=== PATIENT | male | born 1990 | race Two or more races ===

== ENCOUNTER 2019-04-10 10:20 | Emergency (ER) | payer MEDICAID ==
[~2019-04-10] VITALS: Ht 188 cm; Wt 210.1 kg
[2019-04-10 10:35] VITALS: BP 131/79
[2019-04-10 11:19] LABS: Basophils # (auto) 0 uL; Basophils % (auto) 0.3 % (0.0-2.0); Eosinophils # (auto) 0.2 uL; Eosinophils % (auto) 2.3 % (0.0-7.0); Hematocrit 45.5 % (41.0-53.0); Hemoglobin 14.5 g/dL (13.5-17.5); Lymphocytes # (auto) 2.5 uL; Lymphocytes % (auto) 25.5 % (10.0-50.0); Mean Corpuscular Hemoglobin 25.5 pg (28.0-32.0); Mean Corpuscular Hgb Conc. 31.9 g/dL (32.0-36.0); Mean Corpuscular Volume 79.8 fL (80.0-100.0); Monocytes # (auto) 0.5 uL; Monocytes % (auto) 5.2 % (0.0-12.0); Neutrophils # (auto) 6.5 uL; Neutrophils % (auto) 66.7 % (37.0-80.0); Platelet Count (auto) 317 10^3/uL (140-450); Red Blood Cells 5.71 10^6/uL (4.5-5.90); Red Cell Distribution Width 15.1 % (11.8-14.3); White Blood Cell 9.7 10^3/uL (4.4-10.8)
[2019-04-10 11:59] LABS: Alkaline Phosphatase 71 U/L (45-117); Anion Gap 9 (5-15); Aspartate Aminotransferase 42 U/L (15-37); BUN/Creatinine Ratio 10.3; Blood Urea Nitrogen 9 mg/dL (7-18); Carbon Dioxide 24 mmol/L (21-32); Chloride 105 mmol/L (98-107); GFR African American 134 mL/min; GFR Non-African American 111 mL/min; Glucose 117 mg/dL (74-106); Potassium 3.9 mmol/L (3.5-5.1); Sodium 138 mmol/L (136-145)
[2019-04-10 12:00] LABS: Alanine Aminotransferase 61 U/L (16-61); Albumin 3.1 g/dL (3.4-5.0); Bilirubin, Total 0.5 mg/dL (0.2-1.0); Calcium 8.8 mg/dL (8.5-10.1); Total Protein 7.7 g/dL (6.4-8.2)
== END 2019-04-10 18:48 | disposition left against medical advice (07) ==
LOC: ER 10:20
DX: R42 Dizziness and giddiness (principal); R53.1 Weakness; Z53.21 Procedure and treatment not carried out due to patient leaving prior to being seen by health care provider
CPT/HCPCS: 36415; 80053; 82962; 84484; 85025; 93005

== ENCOUNTER 2020-09-26 09:59 | Inpatient (IN) | payer MEDICAID, OTHER ==
[~2020-09-26] VITALS: Ht 185.4 cm; Wt 186.5 kg
[2020-09-26] MEDS ORDERED: ZINC SULFATE 220mg CAP or TAB PO ONE (10:45)
[2020-09-26] MEDS ORDERED: DexAMETHasone SOD PHOS 10MG/1ML VIAL INJ IV ONE (10:45)
[2020-09-26] MEDS ORDERED: ASCORBIC ACID 500 MG TAB PO ONE (10:45)
[2020-09-26 11:02] LABS: Hemoglobin 15.4 g/dL (13.5-17.5); White Blood Cell 15.3 10^3/uL (4.4-10.8)
[2020-09-26 11:04] LABS: Hematocrit 46.8 % (41.0-53.0); Platelet Count (auto) 289 10^3/uL (140-450); Red Blood Cells 5.92 10^6/uL (4.5-5.90); Red Cell Distribution Width 14.3 % (11.8-14.3)
[2020-09-26 11:21] LABS: Albumin 2.5 g/dL (3.4-5.0); Calcium 8.1 mg/dL (8.5-10.1); Potassium 4.2 mmol/L (3.5-5.1)
[2020-09-26 11:30] LABS: BUN/Creatinine Ratio 16.1; Bilirubin, Total 0.7 mg/dL (0.2-1.0); CRP High Sensitivity 9.79 mg/dL (< 0.3); Total Protein 7.9 g/dL (6.4-8.2)
[2020-09-26 11:40] LABS: Basophils % (manual) 0 (0.0-2.0); Blast Cells 0; Eosinophils % (manual) 0 (0-7); Myelocytes % 0; Promyelocytes % 0; Reactive Lymphocytes 0
[2020-09-26 11:49] LABS: INR 1.19 (0.9-1.15); Partial Thromboplastin Time 26.8 sec (23.0-31.2)
[2020-09-26 12:40] LABS: Band Neutrophils % (manual) 3; Lymphocytes % (manual) 7 (10.0-50.0); Metamyelocytes % 1; Monocytes % (manual) 4 (0-12)
[2020-09-26] MEDS ORDERED: MORPHINE SULF INJ 2 MG/ML SYRINGE 1ML IV PRN (14:30)
[2020-09-26] MEDS ORDERED: REMDESIVIR PER PHARMACY IV SCH (14:30)
[2020-09-26] MEDS ORDERED: VANCOMYCIN PER PHARMACY 0 MG IV SCH (14:30)
[2020-09-26] MEDS ORDERED: NITROGLYCERIN 0.4 MG SL TAB SL PRN (14:30)
[2020-09-26] MEDS ORDERED: VANCOMYCIN 1GM/250ML 250 ML IV ONE (14:30)
[2020-09-26] MEDS ORDERED: ACETAMINOPHEN 500 MG TAB PO PRN (14:30)
[2020-09-26] MEDS ORDERED: levoFLOXacin 750MG 150 ML IV ONE (14:30)
[2020-09-26] MEDS ORDERED: ALBUTEROL SULF 2.5 MG/0.5ML(0.5%) NEB SOLN NEB PRN (14:45)
[2020-09-26] MEDS ORDERED: LACTULOSE 20Gm/30ML SOLN PO PRN (14:45)
[2020-09-26] MEDS ORDERED: traMADol HCL 50 MG TAB PO PRN (14:45)
[2020-09-26] MEDS: IPRATROPIUM BROM 0.5 MG/2.5ML INH SOL NEB SCH (21:20)
[2020-09-26] MEDS: BUDESONIDE (INHALATION) 180 MCG IH IN SCH (21:20)
[2020-09-26] MEDS: ALBUTEROL SULF 2.5 MG/0.5ML(0.5%) NEB SOLN NEB SCH (21:20)
[2020-09-26] MEDS: ENOXAPARIN SOD 40 MG/0.4 ML SYRINGE SC SCH (22:30)
[2020-09-26] MEDS: VANCOMYCIN 1GM/250ML 250 ML IV SCH (22:30)
[2020-09-27] MEDS: VANCOMYCIN 1GM/250ML 250 ML IV SCH ×3 (00:30→13:11)
[2020-09-27] MEDS: ALBUTEROL SULF 2.5 MG/0.5ML(0.5%) NEB SOLN NEB SCH ×2 (05:57)
[2020-09-27] MEDS: IPRATROPIUM BROM 0.5 MG/2.5ML INH SOL NEB SCH ×2 (05:57)
[2020-09-27 06:02] LABS: Basophils # (auto) 0 10 ^3/uL (0-0.2); Eosinophils # (auto) 0 10 ^3/uL (0-0.8); Hemoglobin 15.5 g/dL (13.5-17.5); Lymphocytes # (auto) 1.4 10 ^3/uL (0.4-5.4); Monocytes # (auto) 1.5 10 ^3/uL (0-1.3); Neutrophils % (auto) 83.1 % (37.0-80.0); Nucleated Red Blood Cells % 0.4 %
[2020-09-27 06:04] LABS: Basophils % (auto) 0.1 % (0.0-2.0); Hematocrit 47.7 % (41.0-53.0); Lymphocytes % (auto) 8.3 % (10.0-50.0); Mean Corpuscular Hemoglobin 25.8 pg (28.0-32.0); Mean Corpuscular Hgb Conc. 32.6 g/dL (32.0-36.0); Mean Corpuscular Volume 79.3 fL (80.0-100.0); Monocytes % (auto) 8.5 % (0.0-12.0); Neutrophils # (auto) 14.3 10 ^3/uL (1.6-8.6); Platelet Count (auto) 211 10^3/uL (140-450); Red Blood Cells 6.01 10^6/uL (4.5-5.90); Red Cell Distribution Width 14.4 % (11.8-14.3); White Blood Cell 17.3 10^3/uL (4.4-10.8)
[2020-09-27 06:15] LABS: Potassium 4.1 mmol/L (3.5-5.1)
[2020-09-27 06:47] LABS: Albumin 2.5 g/dL (3.4-5.0); BUN/Creatinine Ratio 29.1; Bilirubin, Total 0.7 mg/dL (0.2-1.0); Calcium 8.4 mg/dL (8.5-10.1); Total Protein 7.8 g/dL (6.4-8.2)
[2020-09-27] MEDS: DexAMETHasone SOD PHOS 10MG/1ML VIAL INJ IV SCH (09:02)
[2020-09-27] MEDS: ENOXAPARIN SOD 40 MG/0.4 ML SYRINGE SC SCH (09:02)
[2020-09-27] MEDS: CHOLECALCIFEROL (VITD3) 2,000 UNIT CAP PO SCH (09:02)
[2020-09-27] MEDS: levoFLOXacin 500MG 100 ML IV SCH (09:02)
[2020-09-27] MEDS: ZINC SULFATE 220mg CAP or TAB PO SCH (09:02)
[2020-09-27] MEDS: ASCORBIC ACID 1,000 MG TAB PO SCH (09:02)
[2020-09-27] MEDS: BUDESONIDE (INHALATION) 180 MCG IH IN SCH (10:00)
[2020-09-27] MEDS ORDERED: REMDESIVIR 200 MG in NS 210ml LOADING DOSE ADULT IV ONE (17:00)
--- NOTE | 2020-09-27 18:38 | NUR ---
Respiratory note: PT IS CURRENTLY ON 15 L/M NRB AND 15 L/M OXYMIZER: HR 84, RR 20, SPO2 90%. MDI AND DPI GIVEN AT THIS TIME, TOLERATED WELL. WILL CONTINUE TO MONITOR.
[2020-09-28] MEDS: ENOXAPARIN SOD 40 MG/0.4 ML SYRINGE SC SCH (00:30)
[2020-09-28] MEDS: BUDESONIDE (INHALATION) 180 MCG IH IN SCH ×3 (00:30→22:00)
[2020-09-28] MEDS: VANCOMYCIN 1GM/250ML 250 ML IV SCH ×3 (00:30→14:05)
[2020-09-28] MEDS: ENOXAPARIN SOD 150 MG/1 ML SYRINGE SC SCH (00:30)
[2020-09-28 05:55] LABS: Albumin 2.5 g/dL (3.4-5.0); Calcium 8.3 mg/dL (8.5-10.1); Potassium 4.4 mmol/L (3.5-5.1)
[2020-09-28 05:58] LABS: BUN/Creatinine Ratio 32.4; Bilirubin, Total 0.6 mg/dL (0.2-1.0); Total Protein 7.2 g/dL (6.4-8.2)
[2020-09-28] MEDS: ALBUTEROL SULF HFA 90MCG INH 200DOSE IN PRN (07:25)
[2020-09-28] MEDS: DexAMETHasone SOD PHOS 10MG/1ML VIAL INJ IV SCH (10:41)
[2020-09-28] MEDS: levoFLOXacin 500MG 100 ML IV SCH (10:41)
[2020-09-28] MEDS: ZINC SULFATE 220mg CAP or TAB PO SCH (10:41)
[2020-09-28] MEDS: ASCORBIC ACID 1,000 MG TAB PO SCH (10:42)
[2020-09-28] MEDS: CHOLECALCIFEROL (VITD3) 2,000 UNIT CAP PO SCH (10:42)
[2020-09-28] MEDS ORDERED: ENOXAPARIN SOD 30 MG/0.3 ML SYRINGE SC ONE (14:50)
[2020-09-28] MEDS ORDERED: ENOXAPARIN SOD 150 MG/1 ML SYRINGE SC ONE (14:50)
[2020-09-28] MEDS: REMDESIVIR 100 MG in SODIUM CHL 0.9% 250 ML IV SCH (18:08)
--- NOTE | 2020-09-28 22:00 | NUR ---
Respiratory note: NO MDI TX GIVEN AT THIS TIME, RT UNAVAILABLE, SHORT STAFFED/BUSY WITH CRITICAL PTS.
[2020-09-29] MEDS: ENOXAPARIN SOD 150 MG/1 ML SYRINGE SC SCH ×3 (00:30→22:28)
[2020-09-29] MEDS: ENOXAPARIN SOD 30 MG/0.3 ML SYRINGE SC SCH ×3 (00:31→22:28)
[2020-09-29] MEDS: VANCOMYCIN 1GM/250ML 250 ML IV SCH ×4 (00:32→19:14)
[2020-09-29 03:50] VITALS: BP 139/92
[2020-09-29 04:05] VITALS: BP 131/76
[2020-09-29 04:48] VITALS: BP 145/79
[2020-09-29 06:48] LABS: Basophils # (auto) 0 10 ^3/uL (0-0.2); Eosinophils # (auto) 0 10 ^3/uL (0-0.8); Neutrophils # (auto) 13.7 10 ^3/uL (1.6-8.6); Nucleated Red Blood Cells % 0.1 %
[2020-09-29] MEDS: ALBUTEROL SULF HFA 90MCG INH 200DOSE IN PRN ×2 (06:49→21:07)
[2020-09-29] MEDS: BUDESONIDE (INHALATION) 180 MCG IH IN SCH ×2 (06:49→19:04)
[2020-09-29 06:56] LABS: Basophils % (auto) 0.3 % (0.0-2.0); Hematocrit 43.5 % (41.0-53.0); Hemoglobin 14.2 g/dL (13.5-17.5); Lymphocytes # (auto) 1.4 10 ^3/uL (0.4-5.4); Lymphocytes % (auto) 8.7 % (10.0-50.0); Mean Corpuscular Hemoglobin 26.1 pg (28.0-32.0); Mean Corpuscular Hgb Conc. 32.6 g/dL (32.0-36.0); Monocytes # (auto) 1.2 10 ^3/uL (0-1.3); Monocytes % (auto) 7.3 % (0.0-12.0); Neutrophils % (auto) 83.7 % (37.0-80.0); Platelet Count (auto) 249 10^3/uL (140-450); Red Blood Cells 5.44 10^6/uL (4.5-5.90); Red Cell Distribution Width 14.5 % (11.8-14.3); White Blood Cell 16.4 10^3/uL (4.4-10.8)
[2020-09-29 07:23] LABS: Albumin 2.5 g/dL (3.4-5.0); Potassium 4.3 mmol/L (3.5-5.1)
[2020-09-29 07:26] LABS: BUN/Creatinine Ratio 29.7; Bilirubin, Total 0.5 mg/dL (0.2-1.0); Total Protein 7.5 g/dL (6.4-8.2)
[2020-09-29] MEDS ORDERED: IOHEXOL 350 MG/ML 100ML IJ ONE (08:13)
[2020-09-29] MEDS ORDERED: levoFLOXacin 750MG 150 ML IV ONE (10:45)
[2020-09-29] MEDS: CHOLECALCIFEROL (VITD3) 2,000 UNIT CAP PO SCH (11:30)
[2020-09-29] MEDS: ZINC SULFATE 220mg CAP or TAB PO SCH (11:30)
[2020-09-29] MEDS: ASCORBIC ACID 1,000 MG TAB PO SCH (11:30)
[2020-09-29] MEDS: DexAMETHasone SOD PHOS 10MG/1ML VIAL INJ IV SCH (11:30)
[2020-09-29] MEDS: REMDESIVIR 100 MG in SODIUM CHL 0.9% 250 ML IV SCH (17:10)
[2020-09-30] MEDS: VANCOMYCIN 1GM/250ML 250 ML IV SCH ×4 (05:32→18:29)
[2020-09-30] MEDS: ALBUTEROL SULF HFA 90MCG INH 200DOSE IN PRN ×2 (06:46→21:58)
[2020-09-30] MEDS: BUDESONIDE (INHALATION) 180 MCG IH IN SCH ×2 (06:46→21:58)
[2020-09-30 06:59] LABS: Basophils # (auto) 0 10 ^3/uL (0-0.2); Basophils % (auto) 0.1 % (0.0-2.0); Lymphocytes # (auto) 1.4 10 ^3/uL (0.4-5.4); Monocytes # (auto) 0.9 10 ^3/uL (0-1.3); Monocytes % (auto) 6.8 % (0.0-12.0); Neutrophils % (auto) 81.5 % (37.0-80.0); Nucleated Red Blood Cells % 0.1 %
[2020-09-30 07:01] LABS: Eosinophils # (auto) 0.1 10 ^3/uL (0-0.8); Eosinophils % (auto) 0.5 % (0.0-7.0); Hematocrit 44.8 % (41.0-53.0); Hemoglobin 14.4 g/dL (13.5-17.5); Lymphocytes % (auto) 11.1 % (10.0-50.0); Mean Corpuscular Hemoglobin 25.8 pg (28.0-32.0); Mean Corpuscular Volume 80.5 fL (80.0-100.0); Neutrophils # (auto) 10.3 10 ^3/uL (1.6-8.6); Platelet Count (auto) 292 10^3/uL (140-450); Red Blood Cells 5.56 10^6/uL (4.5-5.90); Red Cell Distribution Width 14.2 % (11.8-14.3); White Blood Cell 12.6 10^3/uL (4.4-10.8)
[2020-09-30 07:19] LABS: Albumin 2.5 g/dL (3.4-5.0); Calcium 8.5 mg/dL (8.5-10.1); Potassium 4.5 mmol/L (3.5-5.1)
[2020-09-30 07:25] LABS: Bilirubin, Total 0.5 mg/dL (0.2-1.0); Total Protein 7.2 g/dL (6.4-8.2)
[2020-09-30] MEDS: DexAMETHasone SOD PHOS 10MG/1ML VIAL INJ IV SCH (10:06)
[2020-09-30] MEDS: levoFLOXacin 750MG 150 ML IV SCH (10:07)
[2020-09-30] MEDS: ASCORBIC ACID 1,000 MG TAB PO SCH (10:07)
[2020-09-30] MEDS: ZINC SULFATE 220mg CAP or TAB PO SCH (10:07)
[2020-09-30] MEDS: ENOXAPARIN SOD 30 MG/0.3 ML SYRINGE SC SCH ×2 (10:08→21:45)
[2020-09-30] MEDS: CHOLECALCIFEROL (VITD3) 2,000 UNIT CAP PO SCH (10:08)
[2020-09-30] MEDS: ENOXAPARIN SOD 150 MG/1 ML SYRINGE SC SCH ×2 (10:08→21:45)
[2020-09-30] MEDS: REMDESIVIR 100 MG in SODIUM CHL 0.9% 250 ML IV SCH (16:35)
[2020-10-01] MEDS: VANCOMYCIN 1GM/250ML 250 ML IV SCH ×4 (00:43→21:41)
[2020-10-01] MEDS ORDERED: VASELINE LIP THERAPY 10gm TOP PRN (04:00)
[2020-10-01] MEDS: BUDESONIDE (INHALATION) 180 MCG IH IN SCH ×2 (06:15→18:40)
[2020-10-01] MEDS: ALBUTEROL SULF HFA 90MCG INH 200DOSE IN PRN ×2 (06:15→18:47)
[2020-10-01 06:41] LABS: Basophils # (auto) 0 10 ^3/uL (0-0.2); Basophils % (auto) 0.1 % (0.0-2.0); Eosinophils # (auto) 0.1 10 ^3/uL (0-0.8); Eosinophils % (auto) 0.5 % (0.0-7.0); Hematocrit 42.9 % (41.0-53.0); Hemoglobin 13.6 g/dL (13.5-17.5); Mean Corpuscular Volume 79.9 fL (80.0-100.0); Red Blood Cells 5.37 10^6/uL (4.5-5.90)
[2020-10-01 06:44] LABS: Lymphocytes # (auto) 1.5 10 ^3/uL (0.4-5.4); Lymphocytes % (auto) 9.6 % (10.0-50.0); Mean Corpuscular Hemoglobin 25.4 pg (28.0-32.0); Mean Corpuscular Hgb Conc. 31.8 g/dL (32.0-36.0); Monocytes # (auto) 1.4 10 ^3/uL (0-1.3); Neutrophils # (auto) 12.4 10 ^3/uL (1.6-8.6); Neutrophils % (auto) 80.8 % (37.0-80.0); Platelet Count (auto) 361 10^3/uL (140-450); White Blood Cell 15.3 10^3/uL (4.4-10.8)
[2020-10-01 06:55] LABS: Albumin 2.5 g/dL (3.4-5.0); Calcium 8.2 mg/dL (8.5-10.1); Potassium 4.3 mmol/L (3.5-5.1)
[2020-10-01 07:01] LABS: BUN/Creatinine Ratio 31.2; Bilirubin, Total 0.5 mg/dL (0.2-1.0); Total Protein 6.8 g/dL (6.4-8.2)
[2020-10-01] MEDS: ENOXAPARIN SOD 30 MG/0.3 ML SYRINGE SC SCH (09:02)
[2020-10-01] MEDS: ENOXAPARIN SOD 150 MG/1 ML SYRINGE SC SCH (09:03)
[2020-10-01] MEDS: DexAMETHasone SOD PHOS 10MG/1ML VIAL INJ IV SCH (10:43)
[2020-10-01] MEDS: ZINC SULFATE 220mg CAP or TAB PO SCH (10:43)
[2020-10-01] MEDS: CHOLECALCIFEROL (VITD3) 2,000 UNIT CAP PO SCH (10:43)
[2020-10-01] MEDS: levoFLOXacin 750MG 150 ML IV SCH (10:43)
[2020-10-01] MEDS: ASCORBIC ACID 1,000 MG TAB PO SCH (10:43)
[2020-10-01] MEDS: PROMETHAZINE HCL 25 MG/ML 1ML IV PRN ×2 (11:47→19:10)
[2020-10-01] MEDS: MORPHINE SULF INJ 2 MG/ML SYRINGE 1ML IV PRN ×2 (11:47→19:10)
[2020-10-01] MEDS ORDERED: REMDESIVIR PER PHARMACY IV SCH (14:00)
[2020-10-01] MEDS: REMDESIVIR 100 MG in SODIUM CHL 0.9% 250 ML IV SCH (17:30)
[2020-10-01] MEDS: APIXABAN 5 MG TAB PO SCH (22:00)
[2020-10-02] MEDS ORDERED: APIXABAN 5 MG TAB ONE (02:06)
[2020-10-02] MEDS ORDERED: VANCOMYCIN 1GM/250ML 250 ML IV ONE (02:06)
[2020-10-02] MEDS: VANCOMYCIN 1GM/250ML 250 ML IV SCH ×4 (04:03→22:46)
[2020-10-02 06:32] LABS: Basophils # (auto) 0 10 ^3/uL (0-0.2); Basophils % (auto) 0.1 % (0.0-2.0); Eosinophils # (auto) 0.1 10 ^3/uL (0-0.8); Hemoglobin 13.8 g/dL (13.5-17.5); Monocytes # (auto) 1.3 10 ^3/uL (0-1.3); Red Cell Distribution Width 14.3 % (11.8-14.3)
[2020-10-02 06:35] LABS: Eosinophils % (auto) 0.4 % (0.0-7.0); Hematocrit 44.2 % (41.0-53.0); Lymphocytes # (auto) 1.5 10 ^3/uL (0.4-5.4); Mean Corpuscular Hgb Conc. 31.2 g/dL (32.0-36.0); Mean Corpuscular Volume 80.1 fL (80.0-100.0); Monocytes % (auto) 7.9 % (0.0-12.0); Neutrophils # (auto) 13.8 10 ^3/uL (1.6-8.6); Neutrophils % (auto) 82.6 % (37.0-80.0); Platelet Count (auto) 411 10^3/uL (140-450); Red Blood Cells 5.51 10^6/uL (4.5-5.90); White Blood Cell 16.6 10^3/uL (4.4-10.8)
[2020-10-02 06:44] LABS: Potassium 4.3 mmol/L (3.5-5.1)
[2020-10-02 06:50] LABS: BUN/Creatinine Ratio 26.5; Calcium 8.3 mg/dL (8.5-10.1)
[2020-10-02] MEDS: CHOLECALCIFEROL (VITD3) 2,000 UNIT CAP PO SCH (10:00)
[2020-10-02] MEDS: APIXABAN 5 MG TAB PO SCH ×2 (10:00→22:46)
[2020-10-02] MEDS: levoFLOXacin 750MG 150 ML IV SCH (10:00)
[2020-10-02] MEDS: ASCORBIC ACID 1,000 MG TAB PO SCH (10:00)
[2020-10-02] MEDS: ZINC SULFATE 220mg CAP or TAB PO SCH (10:00)
[2020-10-02] MEDS: DexAMETHasone SOD PHOS 10MG/1ML VIAL INJ IV SCH (10:00)
[2020-10-02] MEDS: BUDESONIDE (INHALATION) 180 MCG IH IN SCH ×2 (11:41→22:00)
[2020-10-02] MEDS: ALBUTEROL SULF HFA 90MCG INH 200DOSE IN PRN (22:34)
[2020-10-03] MEDS: VANCOMYCIN 1GM/250ML 250 ML IV SCH ×4 (04:24→23:03)
[2020-10-03] MEDS: BUDESONIDE (INHALATION) 180 MCG IH IN SCH ×2 (08:22→21:32)
[2020-10-03] MEDS: ALBUTEROL SULF HFA 90MCG INH 200DOSE IN PRN ×2 (08:22→21:32)
[2020-10-03 09:44] LABS: Basophils # (auto) 0 10 ^3/uL (0-0.2); Eosinophils # (auto) 0.1 10 ^3/uL (0-0.8); Eosinophils % (auto) 0.8 % (0.0-7.0); Hemoglobin 13.3 g/dL (13.5-17.5)
[2020-10-03 09:47] LABS: Basophils % (auto) 0.3 % (0.0-2.0); Hematocrit 41.7 % (41.0-53.0); Lymphocytes # (auto) 1.8 10 ^3/uL (0.4-5.4); Lymphocytes % (auto) 11.9 % (10.0-50.0); Mean Corpuscular Hemoglobin 25.7 pg (28.0-32.0); Mean Corpuscular Volume 80.5 fL (80.0-100.0); Monocytes # (auto) 1.5 10 ^3/uL (0-1.3); Neutrophils # (auto) 11.5 10 ^3/uL (1.6-8.6); Nucleated Red Blood Cells % 0.1 %; Platelet Count (auto) 438 10^3/uL (140-450); Red Blood Cells 5.18 10^6/uL (4.5-5.90); Red Cell Distribution Width 14.3 % (11.8-14.3); White Blood Cell 14.9 10^3/uL (4.4-10.8)
[2020-10-03 10:07] LABS: BUN/Creatinine Ratio 34.5; Calcium 8.6 mg/dL (8.5-10.1); Potassium 4.3 mmol/L (3.5-5.1)
[2020-10-03] MEDS: DexAMETHasone SOD PHOS 10MG/1ML VIAL INJ IV SCH (11:04)
[2020-10-03] MEDS: ZINC SULFATE 220mg CAP or TAB PO SCH (11:05)
[2020-10-03] MEDS: ASCORBIC ACID 1,000 MG TAB PO SCH (11:05)
[2020-10-03] MEDS: APIXABAN 5 MG TAB PO SCH ×2 (11:05→23:04)
[2020-10-03] MEDS: CHOLECALCIFEROL (VITD3) 2,000 UNIT CAP PO SCH (11:06)
[2020-10-03] MEDS: levoFLOXacin 750MG 150 ML IV SCH (14:46)
[2020-10-04] MEDS: VANCOMYCIN 1GM/250ML 250 ML IV SCH ×4 (06:18→21:16)
[2020-10-04] MEDS: BUDESONIDE (INHALATION) 180 MCG IH IN SCH ×3 (06:50→18:44)
[2020-10-04 06:57] LABS: Basophils # (auto) 0 10 ^3/uL (0-0.2); Basophils % (auto) 0.3 % (0.0-2.0); Eosinophils # (auto) 0.1 10 ^3/uL (0-0.8); Eosinophils % (auto) 0.9 % (0.0-7.0); Lymphocytes # (auto) 1.5 10 ^3/uL (0.4-5.4)
[2020-10-04 07:00] LABS: Hematocrit 39.8 % (41.0-53.0); Hemoglobin 12.9 g/dL (13.5-17.5); Lymphocytes % (auto) 11.1 % (10.0-50.0); Mean Corpuscular Hemoglobin 25.9 pg (28.0-32.0); Mean Corpuscular Hgb Conc. 32.3 g/dL (32.0-36.0); Monocytes # (auto) 1.2 10 ^3/uL (0-1.3); Neutrophils # (auto) 10.3 10 ^3/uL (1.6-8.6); Neutrophils % (auto) 78.7 % (37.0-80.0); Platelet Count (auto) 454 10^3/uL (140-450); Red Blood Cells 4.98 10^6/uL (4.5-5.90); Red Cell Distribution Width 14.4 % (11.8-14.3); White Blood Cell 13.1 10^3/uL (4.4-10.8)
[2020-10-04 07:13] LABS: Potassium 3.9 mmol/L (3.5-5.1)
[2020-10-04 07:28] LABS: BUN/Creatinine Ratio 28.8; Calcium 8.2 mg/dL (8.5-10.1)
[2020-10-04] MEDS: ALBUTEROL SULF HFA 90MCG INH 200DOSE IN PRN ×4 (08:25→21:18)
[2020-10-04] MEDS: APIXABAN 5 MG TAB PO SCH ×2 (09:08→21:16)
[2020-10-04] MEDS: ASCORBIC ACID 1,000 MG TAB PO SCH (09:08)
[2020-10-04] MEDS: ZINC SULFATE 220mg CAP or TAB PO SCH (09:08)
[2020-10-04] MEDS: DexAMETHasone SOD PHOS 10MG/1ML VIAL INJ IV SCH (09:08)
[2020-10-04] MEDS: CHOLECALCIFEROL (VITD3) 2,000 UNIT CAP PO SCH (09:08)
[2020-10-04] MEDS: levoFLOXacin 750MG 150 ML IV SCH (10:40)
[2020-10-04 23:30] VITALS: BP 123/70
--- NOTE | 2020-10-04 23:35 | NUR ---
Telemetry admit from ER KRIS CASTELLANO admitted to Telemetry unit. Patient oriented to primary RN, unit, room, bed, and unit policies regarding patient care and visiting hours. Patient now on continuous telemetry monitoring, tele box #34 and telemetry reading on arrival to unit is sinus tachycardia. Patient weighed by bedscale and encouraged to call if they need something. All questions and concerns addressed, patient verbalized understanding. Bed in lowest locked position, call light within reach, side rails up x2. Will continue to monitor Q1hr and PRN.
[2020-10-04 23:40] VITALS: BP 123/70
[2020-10-05] MEDS: VANCOMYCIN 1GM/250ML 250 ML IV SCH ×3 (04:10→17:18)
[2020-10-05 05:00] VITALS: BP 113/62
[2020-10-05 08:15] LABS: Basophils # (auto) 0 10 ^3/uL (0-0.2); Eosinophils # (auto) 0.1 10 ^3/uL (0-0.8); Eosinophils % (auto) 0.9 % (0.0-7.0); Lymphocytes # (auto) 2.2 10 ^3/uL (0.4-5.4); Monocytes # (auto) 1.4 10 ^3/uL (0-1.3); Neutrophils % (auto) 72.9 % (37.0-80.0); Nucleated Red Blood Cells % 0.1 %
[2020-10-05 08:17] LABS: Basophils % (auto) 0.2 % (0.0-2.0); Hematocrit 38.3 % (41.0-53.0); Hemoglobin 12.4 g/dL (13.5-17.5); Lymphocytes % (auto) 15.9 % (10.0-50.0); Mean Corpuscular Hgb Conc. 32.5 g/dL (32.0-36.0); Mean Corpuscular Volume 80.1 fL (80.0-100.0); Monocytes % (auto) 10.1 % (0.0-12.0); Platelet Count (auto) 449 10^3/uL (140-450); Red Blood Cells 4.78 10^6/uL (4.5-5.90); Red Cell Distribution Width 14.2 % (11.8-14.3); White Blood Cell 13.7 10^3/uL (4.4-10.8)
[2020-10-05 08:33] LABS: Calcium 8.3 mg/dL (8.5-10.1); Potassium 3.8 mmol/L (3.5-5.1)
[2020-10-05 08:36] LABS: BUN/Creatinine Ratio 30.8
[2020-10-05 09:00] VITALS: BP 118/63
[2020-10-05] MEDS: DexAMETHasone SOD PHOS 10MG/1ML VIAL INJ IV SCH (10:15)
[2020-10-05] MEDS: APIXABAN 5 MG TAB PO SCH (10:15)
[2020-10-05] MEDS: ZINC SULFATE 220mg CAP or TAB PO SCH (10:15)
[2020-10-05] MEDS: ASCORBIC ACID 1,000 MG TAB PO SCH (10:15)
[2020-10-05] MEDS: CHOLECALCIFEROL (VITD3) 2,000 UNIT CAP PO SCH (10:15)
[2020-10-05] MEDS: levoFLOXacin 750MG 150 ML IV SCH (11:30)
--- NOTE | 2020-10-05 11:30 | NUR ---
at bedside Dr. Francois at bedside at this time updating patient on POC and plans to discharge patient home today. Patient verbalizes understanding at this time.
[2020-10-05] MEDS ORDERED: APIX5TAB PO ×2 (15:02)
[2020-10-05] MEDS ORDERED: ASCO10003 PO ×2 (15:02)
[2020-10-05 17:00] VITALS: BP 118/61
[2020-10-05 17:36] VITALS: BP 118/63
--- NOTE | 2020-10-05 18:51 | NUR ---
DISCHARGE Discharge instructions given as ordered. Encourage to follow up with PMD as instructed. All questions and concerns addressed. Patient verbalized understanding. IV removed with catheter intact, pressure dressing applied. Telemetry unit returned to ICU. Patient taken to vehicle via wheelchair with all personal belongings, accompanied by staff. No distress noted at time of departure.
[2020-10-08] MEDS ORDERED: APIXABAN 5 MG TAB PO SCH (22:00)
== END 2020-10-05 18:49 | disposition home or self-care (01) | DRG 871 ==
LOC: EDBD 09:59 → ER 09:59 → EDSEX 09:59 → TELE 14:28 → TELE-EAST 10-04 23:35
PROVIDERS: ADMIT Internal Medicine; ATTEND Internal Medicine Pulmonary Disease
PROC: XW033E5 Introduction of Remdesivir Anti-infective into Peripheral Vein, Percutaneous Approach, New Technology Group 5 (ICD-10-PCS; 2020-09-27)
PROC: XW13325 Transfusion of Convalescent Plasma (Nonautologous) into Peripheral Vein, Percutaneous Approach, New Technology Group 5 (ICD-10-PCS; principal; 2020-09-29)
PROC: 5A09357 Assistance with Respiratory Ventilation, Less than 24 Consecutive Hours, Continuous Positive Airway Pressure (ICD-10-PCS; 2020-10-01)
DX: A41.89 Other specified sepsis (principal); I21.4 Non-ST elevation (NSTEMI) myocardial infarction; I50.21 Acute systolic (congestive) heart failure; J12.89 Other viral pneumonia; J96.01 Acute respiratory failure with hypoxia; U07.1 COVID-19; I82.403 Acute embolism and thrombosis of unspecified deep veins of lower extremity, bilateral; Z68.43 Body mass index [BMI] 50.0-59.9, adult; E66.01 Morbid (severe) obesity due to excess calories; R04.0 Epistaxis; Z83.3 Family history of diabetes mellitus; R73.9 Hyperglycemia, unspecified
CPT/HCPCS: 36415; 36600; 71045; 71275; 80048; 80053; 80202; 82550; 82728; 82805; 83036; 83615; 83880; 84443; 84484; 85007; 85025; 85027; 85379; 85610; 85730; 86141; 86850; 86900; 86901; 87426; 93306; 93970; 94640; 96374; 99291; G0378; J1100; J1956